=== PATIENT | male | born 1990 | race Caucasian/White ===

== ENCOUNTER 2019-02-21 02:03 | Emergency (ER) | payer OTHER, MEDICAID, SELFPAY ==
--- NOTE | 2019-02-21 02:04 | DI.RAD.S_ITS ---
PROCEDURE: XR CHEST 1V INDICATIONS: Chest pain status post CPR TECHNIQUE: One view of the chest was acquired. COMPARISON: None. FINDINGS: Surgical changes and devices: None. Lungs and pleura: Lungs are clear. No pleural effusions or pneumothorax. Mediastinum: Mediastinal contours appear normal. Heart size is normal. Bones and chest wall: No suspicious bony lesions. Overlying soft tissues appear unremarkable. IMPRESSION: No acute cardiopulmonary disease process. Dictated by: Steph Doan MD, PhD on 02/21/2019 at 8:16 Approved by: Steph Doan MD, PhD on 02/21/2019 at 8:16
[2019-02-21 02:10] VITALS: BP 134/103; PULSE 80; RESP 13; TEMP 37; O2SAT 98
--- NOTE | 2019-02-21 02:10 | ED_ITS ---
HPI - General Adult General Chief complaint: Toxicology Problem Time Seen by Provider: 02/21/19 02:03 Source: patient and EMS Mode of arrival: EMS Limitations: no limitations History of Present Illness HPI narrative: Patient is a 28-year-old male who was brought in by EMS. Their initial call was for a CPR in progress. Is reported that the patient's girlfriend found him blue and unresponsive and not breathing. Report was is that police were 1st on the scene. CPR was initiated by the police. 4 mg of Narcan was administered. EMS reports that police were questioning whether not the 1st 2 mg were administered properly. Another 2 mg was administered by EMS for total of 6 mg of Narcan. Patient did start to breathe on his own after this. EMS were unable to obtain a IV so an IO was started. When this was placed the patient did respond. Since the last dose of Narcan patient has become more responsive. Upon arrival here in the emergency department patient stated that he had no complaints. He does not remember last evening. Does not remember taking any drugs. Related Data Allergies Allergy/AdvReac Type Severity Reaction Status Date / Time No Known Drug Allergies Allergy Verified 02/21/19 04:12 Review of Systems Constitutional Denies fever(s) Eyes Denies change in vision ENT Ears, Nose, Mouth, and Throat: Denies sore throat Cardiovascular Denies dyspnea Comments: Mild chest pain Respiratory Denies dyspnea Gastrointestinal Gastrointestinal: Denies abdominal pain, Denies change in stool character, Reports nausea and Reports vomiting Musculoskeletal Denies myalgias and Denies arthralgias Integumentary/Breasts Denies rash Neurologic Reports behavioral changes Comments: Altered mental status Psychiatric Reports behavioral changes and Denies depression Hematologic/Lymphatic Denies easy bleeding and Denies easy bruising Allergic/Immunologic Denies urticaria [facility] Medical History Patient denies medical problems (Acute) Social History Smoking Status: Unknown if ever smoked Social History Smoking Status: Unknown if ever smoked Exam Initial Vital Signs Initial Vital Signs: Vital Signs Temperature 98.6 F 02/21/19 02:10 Pulse Rate 80 02/21/19 02:10 Respiratory Rate 13 02/21/19 02:10 Blood Pressure 134/103 H 02/21/19 02:10 Pulse Oximetry 98 02/21/19 02:10 Const General: cooperative, well developed, well groomed and No acute distress Orientation: alert, awake and oriented x3 HENMT Head: normal to inspection and normocephalic Nose: external nose normal Face and sinus: normal facial exam Mouth: oral mucosae normal Eyes Pupils: PERRL and dilated Chest Chest: normal inspection of the chest, No crepitus and tenderness Resp Effort & Inspection: normal respiratory effort Auscultation: clear to auscultation bilaterally Cardio Rate: regular rate Rhythm: regular rhythm Pulses: radial pulses present GI Inspection: non-distended Palpation: soft, No firm and No tender Back/Spine/Pelvis Cervical Spine: No cervical spinal tenderness Skin Lesions: no lesions Rashes: no rashes Neuro General: alert, awake and oriented x3 Cognition: normal cognition Speech: speech normal Sensory Exam: no sensory deficits noted Extrem General: normal to inspection, capillary refill normal and No edema Psych Appearance: grossly normal and well kempt Scores GCS [place] coma scale eye opening: Spontaneous Peter coma scale verbal response: Orientated Peter coma scale motor response: Obey commands Peter coma scale total score: 15 Course Orders Ordered: ED Orders 02/21/19 02:04 XR chest 1V Stat 02/21/19 02:10 Basic Metabolic Panel Stat Complete Blood Count AUTO DIFF Stat Sodium Chloride (Normal Saline 0.9%) 1,000 mls @ 125 mls/hr IV CONT CRISPIN Last Admin: 02/21/19 02:31 Dose: 125 mls/hr Discontinued Medications Acetaminophen (Tylenol) 650 mg PO NOW ONE Stop: 02/21/19 03:19 Last Admin: 02/21/19 04:24 Dose: 650 mg Metoclopramide HCl (Reglan) 10 mg IV NOW ONE Stop: 02/21/19 04:01 Last Admin: 02/21/19 04:09 Dose: 10 mg Ondansetron HCl (Zofran) 4 mg IV NOW ONE Stop: 02/21/19 02:10 Last Admin: 02/21/19 02:31 Dose: 4 mg Ondansetron HCl (Zofran) 4 mg IV NOW ONE Stop: 02/21/19 03:00 Last Admin: 02/21/19 03:04 Dose: 4 mg Vital Signs - 8 hr 02/21/19 02:10 02/21/19 03:47 02/21/19 04:51 Temperature 98.6 F Pulse Rate 80 89 90 Respiratory Rate 13 16 17 Blood Pressure 134/103 H Blood Pressure [Right Arm] 134/84 128/73 Pulse Oximetry 98 94 96 Medical Decision Making Lab Data Lab results reviewed: Yes I reviewed the patient's lab results. Result diagrams: 02/21/19 02:10 02/21/19 02:10 Lab Results 02/21/19 02/21/19 Range/Units 02:10 02:10 WBC 7.5 (4.5-11.0) X10^3/uL RBC 4.87 (4.5-5.9) X10^6/uL Hgb 14.3 (13.5-17.5) g/dL Hct 42.9 (41-53) % MCV 88.1 (80-100) fL MCH 29.3 (26-34) PG MCHC 33.3 (30-36) % RDW 16.2 H (11.6-14.8) % Plt Count 197 (150-400) X10^3/uL Neut % (Auto) 62.2 (50-75) % Lymph % (Auto) 28.5 (25-40) % Williamson % (Auto) 8.0 (3-14) % Eos % (Auto) 0.6 L (2-4) % Baso % (Auto) 0.7 (0-2) % Neut # (Auto) 4700 (2040-5482) /uL Lymph # (Auto) 2100 (8979-3601) /uL Williamson # (Auto) 600 (0-900) /uL Eos # (Auto) 0 (0-450) /uL Baso # (Auto) 100 (0-100) /uL Sodium 138 (137-145) mmol/L Potassium 4.1 (3.4-5.1) mmol/L Chloride 98 (98-107) mmol/L Carbon Dioxide 30 (22-32) mmol/L BUN 17 (9-20) mg/dL Creatinine 1.00 (0.66-1.25) mg/dL Estimated GFR > 60.0 (>60) mL/min BUN/Creatinine Ratio 17.0 (6-22) Glucose 244 H (70-100) mg/dL Calcium 9.2 (8.4-10.2) mg/dL Imaging Data Chest x-ray: Attestation: I personally reviewed and interpreted this imaging study as follows: My impression: No focal consolidations No pneumothorax No rib fractures noted MDM Narrative Medical decision making narrative: Since arriving here in the emergency department patient was alert and oriented x3. Had a GCS of 15. My opinion has capacity make decisions. After several doses of Zofran and still having nausea was given Reglan which seemed to resolve all of his nausea symptoms. He was ab le to tolerate oral intake. Patient has no SI or HI. He is here with his girlfriend who was the 1 who contacted EMS. She reports not seeing the patient take any opioids however to of a strong suspicion that this is what happened given his response to Narcan. He was observed here in the emergency department for greater than 2 hours after he was given the Narcan. I feel that we are at a point where if the somnolence from any ingested opioids or to return what of happened by now. Do not feel the patient needs admitted to the hospital. No indication for Narcan drip. He was informed not to drive for the next 24 hours. We did discuss his drug use. Was given phone numbers to contact for follow-up with the primary provider. We discussed return precautions and follow-up instructions. He expressed understanding and agreement with plan. Discharge Plan Departure Patient Disposition: Home Clinical Impression: Opioid overdose Qualifiers: Encounter type: initial encounter Injury intent: undetermined intent Qualified Code(s): T40.2X4A - Poisoning by other opioids, undetermined, initial encounter Instructions: DI for Drug Abuse and Drug Addiction Activity Restrictions/Additional Instructions: No driving for the next 24 hours or in the future if you partake in intoxicating substances. I highly recommend that you avoid opioids in the future. Contact her primary care doctor for follow-up. If you do not have a primary care doctor he can contact [phone]. This is the health resources coordinator at the hospital that can help you establish a primary provider. [place] [facility] [place] for any new or worsening symptoms
[2019-02-21 02:25] LABS: Add Manual Diff / Slide Review NO; Basophils Absolute Auto 100 /uL (0-100); Basophils Percent Auto 0.7 % (0-2); Eosinophils Absolute Auto 0 /uL (0-450); Eosinophils Percent Auto 0.6 % (2-4); Hematocrit 42.9 % (41-53); Hemoglobin 14.3 g/dL (13.5-17.5); Lymphocytes Absolute Auto 2100 /uL (1100-4500); Lymphocytes Percent Auto 28.5 % (25-40); Mean Corpuscular HGB Conc 33.3 % (30-36); Mean Corpuscular Hemoglobin 29.3 PG (26-34); Mean Corpuscular Volume 88.1 fL (80-100); Monocytes Absolute Auto 600 /uL (0-900); Neutrophils Absolute Auto 4700 /uL (1500-7000); Neutrophils Percent Auto 62.2 % (50-75); Platelet Count 197 X10^3/uL (150-400); Red Blood Cell Count 4.87 X10^6/uL (4.5-5.9); Red Cell Distribution Width 16.2 % (11.6-14.8); White Blood Cell Count 7.5 X10^3/uL (4.5-11.0)
[2019-02-21] MEDS: ONDANSETRON 4 MG/2 ML INJ IV ×2 (02:31→03:04)
[2019-02-21] MEDS: SODIUM CHLORIDE 0.9% 1,000 ML 125 ML IV (02:31)
[2019-02-21 02:36] LABS: Blood Urea Nitrogen 17 mg/dL (9-20); Calcium 9.2 mg/dL (8.4-10.2); Carbon Dioxide 30 mmol/L (22-32); Chloride 98 mmol/L (98-107); Estimated Glomerular Filt Rate > 60.0 mL/min (>60); Glucose 244 mg/dL (70-100); HEMOLYSIS < 15 (0-50); Potassium 4.1 mmol/L (3.4-5.1); Sodium 138 mmol/L (137-145)
--- NOTE | 2019-02-21 02:46 | PC.NURSE ---
IO in right tibia placed by EMS removed at pt request
[2019-02-21 03:47] VITALS: BP 134/84; PULSE 89; RESP 16; O2SAT 94
[2019-02-21] MEDS: METOCLOPRAMIDE 10 MG/2 ML INJ IV (04:09)
[2019-02-21] MEDS: ACETAMINOPHEN 325 MG TABLET 650 MG PO (04:24)
[2019-02-21 04:51] VITALS: BP 128/73; PULSE 90; RESP 17; O2SAT 96
== END 2019-02-21 05:07 | disposition home or self-care (01) ==
PROVIDERS: Emergency Provider Emergency Medicine
DX: T40.2X4A Poisoning by other opioids, undetermined, initial encounter (principal); R07.9 Chest pain, unspecified
CPT/HCPCS: 36591; 71045; 80048; 85025; 96361; 96374; 96375; 96376; 99283; 99284; J2405; J2765

== ENCOUNTER 2024-12-24 18:51 | Emergency (ER) | payer OTHER, MEDICAID, SELFPAY ==
[2024-12-24 19:01] VITALS: BP 121/75; PULSE 46; RESP 17; TEMP 36.2; O2SAT 98; BMI 22.0
--- NOTE | 2024-12-24 19:16 | DI.RAD.S_ITS ---
PROCEDURE: XR HAND RT MIN 3V INDICATIONS: deep laceration, r/o foreign bodies TECHNIQUE: 3 views of the hand(s) acquired. COMPARISON: None. FINDINGS: Bones: No fractures or dislocations. Carpal bones are normally aligned. No suspicious bony lesions. Soft tissues: Soft tissue swelling over dorsal aspect of metacarpal bones is seen. No suspicious soft tissue calcifications. IMPRESSION: No acute right hand fracture or dislocation. Dorsal soft tissue swelling. No radiopaque foreign bodies. Dictated by: Raphael Santana M.D. on 12/24/2024 at 19:51 Approved by: Raphael Santana M.D. on 12/24/2024 at 19:54
[2024-12-25 01:15] VITALS: BP 138/89; PULSE 82; RESP 18; O2SAT 97
[2024-12-25] MEDS: BACITRACIN OINT 0.9 GM PCKT 1 APPLIC TOP (02:19)
--- NOTE | 2024-12-25 02:29 | ED.WOUNDLAC ---
HPI - Wound/Laceration General Chief Complaint: Wound/Laceration Stated Complaint: Rt hand wound Time Seen by Provider: 12/25/24 01:44 Source: patient and family Mode of arrival: Ambulatory History of Present Illness HPI narrative: 34-year-old otherwise healthy young man was willing and the knife slipped and he sustained a cut to the palmar surface of his left hand. Does not appear to involve nerves or tendons. bleeding is controlled, he is up-to-date on tetanus status Related Data Previous Rx's Medication Instructions Recorded cephalexin 500 mg capsule 500 mg PO TID #15 caps 12/25/24 Allergies Allergy/AdvReac Type Severity Reaction Status Date / Time No Known Drug Allergies Allergy Verified 12/24/24 19:00 Review of Systems Review of Systems Narrative: Pertinent positive and negative findings as per HPI Patient History Medical History (Updated 12/25/24 @ 02:32 by Radha Tirado MD) Patient denies medical problems Social History Smoking Status: Current every day smoker Smoking Status: Current every day smoker tobacco type: cigarettes Exam Initial Vital Signs Initial Vital Signs: Vital Signs Temperature 97.2 F L 12/24/24 19:01 Pulse Rate 46 L 12/24/24 19:01 Respiratory Rate 17 12/24/24 19:01 Blood Pressure 121/75 12/24/24 19:01 Pulse Oximetry 98 12/24/24 19:01 Oxygen Delivery Method Room Air 12/24/24 19:01 General: Alert appropriate in no acute distress Respiratory: Able to speak in full sentences, no obvious respiratory distress Skin: No obvious rashes, warm and dry Neurologic: Grossly intact no obvious asymmetries or abnormalities Psych: appropriate insight and affect, cooperative Extremity: 4 cm laceration of the palmar surface of the right hand, neurovascularly intact, no tendons exposed are involved Procedures Laceration Repair right hand laceration: Time of procedure: 02:46 Site: hand Side (If applicable): right Size (cm): 5 Description: linear Depth: simple, single layer Local Anesthetic: lidocaine 1% Amount of anesthesia used (mL): 4 Pre-repair: wound explored, irrigated extensively and deep structures intact Skin layer closed with: nylon Skin layer suture size: 4-0 Number of sutures: 6 Technique: simple, interrupted Course Orders Ordered: ED Orders 12/24/24 19:16 XR hand RT min 3V Stat Discontinued Medications Bacitracin (Bacitracin Oint 0.9 Gm Pckt) 1 applic TOP NOW ONE Stop: 12/25/24 02:15 Last Admin: 12/25/24 02:19 Dose: 1 applic Documented By: PIERO Vital Signs Vital signs: Vital Signs - 8 hr 12/24/24 19:01 Temperature 97.2 F L Pulse Rate 46 L Respiratory Rate 17 Blood Pressure 121/75 Pulse Oximetry 98 Oxygen Delivery Method Room Air MDM - Wound/Laceration MDM Narrative Medical decision making narrative: 34-year-old young man no significant medical history was willing and slipped with the knife ending up in the ulnar side of the palm of his right hand. He is neurovascularly intact. No evidence of tendon laceration. Wound is irrigated. Sutured without difficulty dressing is placed. He is up-to-date on his tetanus status. Recommended sutures out in approximately 10 days, we did discuss deep tissue as well as superficial infection and reasons to return to the emergency department. He is given 5 days of Keflex. hand x-ray is unremarkable. questions are answered and he is safe for discharge Discharge Plan Departure Patient Disposition: Home Clinical Impression: Laceration Instructions: DI for Laceration Repair Activity Restrictions/Additional Instructions: thank you for coming in today the cut tear hand was through the skin but does not involve any of the nerves or tendons. Your x-ray was reassuring You are up-to-date on your tetanus with hand wounds, I was do worry about infection. I am going to give you a prescription for cephalexin, it is 3 times a day for 5 days. Please do complete this. If you find that you are having increasing redness swelling or drainage to the wound or redness swelling to the entire hand itself, this is not normal and does need to be re-evaluated. Stitches need to come out on or about January 03 using 400 mg of ibuprofen (2 [id number] pills) and 1 Tylenol every 6 hours can be very helpful in controlling pain. please keep a clean dressing over the wound until sutures are out If you find that you are getting worse or develop any new symptoms, please feel free to return to the emergency department for further evaluation. Prescriptions: New cephalexin 500 mg capsule 500 mg PO TID Qty: 15 0RF Stand Alone Forms: Patient Portal/API/Survey
--- NOTE | 2024-12-25 03:01 | PC.NURSE ---
laceration wrapped with telfa, david with a layer of coban applied for pressure, after bacitracin applied
[2024-12-25 03:02] VITALS: BP 136/80; PULSE 80; RESP 18; O2SAT 100
== END 2024-12-25 03:04 | disposition home or self-care (01) ==
PROVIDERS: Emergency Provider Emergency Medicine
DX: S61.411A Laceration without foreign body of right hand, initial encounter (principal); W26.0XXA Contact with knife, initial encounter
CPT/HCPCS: 12002; 73130; 99283

== ENCOUNTER 2025-01-06 18:22 | Emergency (ER) | payer OTHER, SELFPAY ==
[2025-01-06 18:26] VITALS: BP 115/80; PULSE 64; RESP 20; TEMP 36.6; O2SAT 96; BMI 22.2
--- NOTE | 2025-01-06 18:31 | ED.RECABL ---
HPI - Recheck/Abnormal Lab/Rx <Radha Mario PA-C - Last Filed: 01/06/25 19:25> General Chief Complaint: Recheck/Abnormal Lab/Rx Stated Complaint: need stitches out Time Seen by Provider: 01/06/25 18:24 Mode of arrival: Ambulatory History of Present Illness HPI narrative: Mr. Mcnair is a pleasant 34-year-old male with no reported past medical history who presents to the emergency department for suture removal. On 12/24/2024 patient accidentally cut his right palm with a knife (butter knife he sharpened), he came to the emergency department and had a negative right hand x-ray, and had 6 simple interrupted sutures placed. He completed a 5 day course of cephalexin and has been doing wound care. He is here to have the stitches taken out but he is also concerned because he does not have flexion of his 5th and 4th fingers which he stated has been present since the injury. He denies any fevers, chills, flu-like symptoms, there is minimal erythema surrounding the wound, no streaking erythema or swelling. He is right-hand dominant. Related Data Previous Rx's ?Medication ?Instructions ?Recorded cephalexin 500 mg capsule 500 mg PO TID #15 caps 12/25/24 Allergies Allergy/AdvReac Type Severity Reaction Status Date / Time No Known Drug Allergies Allergy Verified 01/06/25 18:26 Review of Systems <Radha Mario PA-C - Last Filed: 01/06/25 19:25> Review of Systems ROS Unobtainable: All systems reviewed & are unremarkable except as noted in HPI and below Patient History <Radha Mario PA-C - Last Filed: 01/06/25 19:25> Medical History (Updated 01/09/25 @ 00:00 by ) Patient denies medical problems Social History Smoking Status: Never smoker Smoking Status: Never smoker tobacco type: cigarettes Exam <Radha Mario PA-C - Last Filed: 01/06/25 19:25> Narrative Exam Narrative: GENERAL: 34 year old patient appears stated age. Well-developed patient, in no acute distress. HEAD: Atraumatic. Normocephalic. CARDIOVASCULAR: Regular rate RESPIRATORY: ?Nonlabored respirations. ?Speaking in clear, full sentences. ? EXTREMITIES: 4 cm healed laceration on the palmar surface of the right hand with 6 simple interrupted [address]ures in place. Patient has a proximally 0.5 cm of erythema surrounding the wound borders and slight scabbing of the suture sites. No streaking erythema, edema of the hand, increased warmth or drainage. Patient's right 5th and 4th digits are held in extension and he is unable to actively flex the 4th and 5th DIP and PIP joints. Brisk capillary refill in the 4th and 5th digits, sensation intact to light touch on the distal 4th and 5th digits. NEURO: AOx3. ?Clear speech. SKIN: Healed right hand palmar laceration described above. Initial Vital Signs Initial Vital Signs: Vital Signs Temperature 98 F 01/06/25 18:26 Pulse Rate 64 01/06/25 18:26 Respiratory Rate 20 01/06/25 18:26 Blood Pressure 115/80 01/06/25 18:26 Pulse Oximetry 96 01/06/25 18:26 Oxygen Delivery Method Room Air 01/06/25 18:26 <DO Tani Hernandez Last Filed: 01/16/25 08:57> Initial Vital Signs Initial Vital Signs: Vital Signs Temperature 98 F 01/06/25 18:26 Pulse Rate 64 01/06/25 18:26 Respiratory Rate 20 01/06/25 18:26 Blood Pressure 115/80 01/06/25 18:26 Pulse Oximetry 96 01/06/25 18:26 Oxygen Delivery Method Room Air 01/06/25 18:26 Course <Radha Mario PA-C - Last Filed: 01/06/25 19:25> Orders Ordered: Discontinued Medications Bacitracin (Bacitracin Oint 0.9 Gm Pckt) 1 applic TOP NOW ONE Stop: 01/06/25 18:44 Last Admin: 01/06/25 19:09 Dose: 1 applic Documented By: SB Vital Signs Vital signs: Vital Signs - 8 hr 01/06/25 18:26 Temperature 98 F Pulse Rate 64 Respiratory Rate 20 Blood Pressure 115/80 Pulse Oximetry 96 Oxygen Delivery Method Room Air <DO Tani Hernandez Last Filed: 01/16/25 08:57> Orders Ordered: Discontinued Medications Bacitracin (Bacitracin Oint 0.9 Gm Pckt) 1 applic TOP NOW ONE Stop: 01/06/25 18:44 Last Admin: 01/06/25 19:09 Dose: 1 applic Documented By: SB Vital Signs Vital signs: Vital Signs - 8 hr 01/06/25 18:26 Temperature 98 F Pulse Rate 64 Respiratory Rate 20 Blood Pressure 115/80 Pulse Oximetry 96 Oxygen Delivery Method Room Air [facility] - Recheck/Abnormal Lab/Rx <Radha Mario PA-C - Last Filed: 01/06/25 19:25> Medical Records Attestation: I reviewed the patient's medical records. [facility] Narrative Medical decision making narrative: 34-year-old male with no reported past medical history who presents to the emergency department for suture removal. On 12/24/2024 patient accidentally cut his right palm with a knife (butter knife he sharpened), he came to the emergency department and had a negative right hand x-ray, and had 6 simple interrupted sutures placed. Differential diagnosis includes but isn't limited to suture removal, laceration, tendon injury, etc. On exam the patient is in no acute distress, nontoxic-appearing, all vital signs within normal limits. Laceration on the right ulnar aspect of the palm is healed with minimal surrounding erythema, no drainage. Betadine was applied to the wound and 6 simple interrupted sutures were removed without difficulty. Bacitracin and a nonadherent dressing was then applied. Patient is however unable to flex his 5th and 4th digits at the D IP and PIP joint locations. Called and spoke with our on-call orthopedic surgeon, Dr. Dias, who recommended patient be urgently evaluated by hand surgeon Dr. Bruno for tendon repair. Discussed with the patient and his the urgency of patient is seeing hand surgeon, they are agreeable to call Dr. Bruno's office 1st thing Thursday morning. In the meantime, was concerned that hand redness is worsening, we will treat with course of doxycycline, recommended local wound care, right hand was also Gurmeet wrapped to keep 2nd through 5th digits together. Patient and verbalized understanding of all information and are agreeable to this plan. Discussed ED return precautions. He is stable for discharge home. Discharge Plan Departure Patient Disposition: Home Clinical Impression: Encounter for removal of sutures Injury of hand, right Qualifiers: Encounter type: initial encounter Qualified Code(s): S69.91XA - Unspecified injury of right wrist, hand and finger(s), initial encounter Instructions: DI for Suture Removal, DI for Finger Flexor Tendon Injury Activity Restrictions/Additional Instructions: Dear Mr. Mcnair, Thank you for coming to the emergency department. Today you were evaluated for suture removal and for concerns of difficulty flexing your right 5th and 4th fingers. I discussed your case with our on-call orthopedic surgeon, Dr. Sandra Dias, who recommends that you emergently follow up with hand surgeon Dr. Bruno with [facility]. Thursday, please call Dr. Guerrero's office at [phone] to schedule an urgent appointment for concern of right hand tendon injury. Their office is [address] [place] [address]. Our orthopedic surgeon, Dr. Dias, recommends that if you can not be seen by Dr. Bruno urgently, then you should proceed to [facility] ER. Please continue to apply triple antibiotic or bacitracin ointment to the wound, complete the course of oral antibiotics, keep the wound clean, dry and covered at all times. Please keep the right hand Gurmeet wrapped so that the index and middle fingers can support the 5th and 4th fingers. Please follow up with your primary care doctor within the next 2-3 days for ER follow-up. (If you do not have a PCP you can call [phone]. ?to schedule an appointment with an [facility] Primary Care Provider) IF YOU DEVELOP ANY NEW OR WORSENING SYMPTOMS, RETURN TO THE ER! Please read the attached instructions, they highlight more specific treatments and interventions for you at home. Thank you for letting me participate in your care, Radha Mario PA-C Prescriptions: No Action cephalexin 500 mg capsule 500 mg PO TID Qty: 15 0RF Referrals: Chase Dias MD [Physician, Orthopedic Surgery] Referral Note: Right hand injury 12/24, suture removal 01/06 with inability to flex 5th & 4th DIP, PIP. Informed pt to call Dr. Bruno. Stand Alone Forms: Patient Portal/API ED Sign-out <Addie Proctor DO - Last Filed: 01/16/25 08:57> Cosign ED Attending Gilmaature Attestation: I was immediately available in the department for consultation.
[2025-01-06] MEDS: BACITRACIN OINT 0.9 GM PCKT 1 APPLIC TOP (19:09)
== END 2025-01-06 19:16 | disposition home or self-care (01) ==
PROVIDERS: Emergency Provider Physician Assistant
DX: S61.411D Laceration without foreign body of right hand, subsequent encounter (principal); W26.0XXD Contact with knife, subsequent encounter
CPT/HCPCS: 99282